=== PATIENT | female | born 2000 | race African-American/Black ===

== ENCOUNTER 2025-02-05 18:16 | Emergency (ER) | payer OTHER ==
[2025-02-05] MEDS ORDERED: Acetaminophen 500 MG TAB ONE (20:15)
== END 2025-02-05 21:30 | disposition home or self-care (01) ==
LOC: ERS 18:16
DX: S80.11XA Contusion of right lower leg, initial encounter (principal); M25.561 Pain in right knee; F17.290 Nicotine dependence, other tobacco product, uncomplicated; W01.0XXA Fall on same level from slipping, tripping and stumbling without subsequent striking against object, initial encounter
CPT/HCPCS: 99283